=== PATIENT | female | born 1985 | race African-American/Black ===

== ENCOUNTER 2016-12-04 20:05 | Emergency (ER) | payer BC ==
[~2016-12-04] VITALS: Ht 165.1 cm; Wt 117.9 kg
[~2016-12-04 20:05] MED LIST: ALBUTEROL INHAL17 GM IH; AMOXICILLIN 50500 M1 PO; DEPO-PROVERA; FLAGYL500 MG PO; IRON; PRENATAL
[2016-12-04] MEDS ORDERED: MOBIC7.5 MG PO (20:37)
[2016-12-04] MEDS ORDERED: KEFLEX500 MG PO (20:37)
[2016-12-04 20:53] VITALS: BP 123/64
== END 2016-12-04 20:54 | disposition home or self-care (01) ==
LOC: ER 20:05
DX: S91.311A Laceration without foreign body, right foot, initial encounter (principal); E11.9 Type 2 diabetes mellitus without complications; X58.XXXA Exposure to other specified factors, initial encounter; Y93.89 Activity, other specified; Y92.89 Other specified places as the place of occurrence of the external cause; Y99.8 Other external cause status

== ENCOUNTER 2020-08-24 13:03 | Emergency (ER) | payer BC ==
[~2020-08-24] VITALS: Ht 165.1 cm; Wt 122.5 kg
[~2020-08-24 13:03] MED LIST changes: +KEFLEX500 MG PO; +MOBIC7.5 MG PO
[2020-08-24] MEDS ORDERED: METFORMIN HCL500 M3 PO (13:32)
[2020-08-24] MEDS ORDERED: LIPITOR 20 MG T20 M1 PO (13:33)
[2020-08-24 13:35] LABS: BASOPHILS 0.3 % (0.0-2.0); EOSINOPHILS 1.3 % (0.0-3.0); HEMOGLOBIN 13.8 gm/dL (12.0-15.0); LYMPHOCYTES 29.5 % (24.0-44.0); MCH 29.6 pg (26.0-34.0); MCHC 33.7 g/dL (28.0-37.0); MCV 87.8 fL (80.0-100.0); PLATELET COUNT 227 thou/uL (150-400); POLYS 60.9 % (36.0-66.0); RBC 4.67 mil/uL (4.20-5.00); RDW 13.3 % (10.5-14.5); WBC 6.5 thou/uL (4.0-11.0)
[2020-08-24 13:38] LABS: CALCIUM 8.2 mg/dL (8.5-10.1); CREATININE 0.9 mg/dL (0.6-1.0); POTASSIUM 3.9 mmol/L (3.5-5.1)
[2020-08-24 13:44] LABS: ALBUMIN 3.5 g/dL (3.4-5.0); TOTAL BILIRUBIN 0.5 mg/dL (0.2-1.0)
[2020-08-24] MEDS ORDERED: CYCLOBENZAPRINE5 MG PO (16:23)
[2020-08-24] MEDS ORDERED: NORCO5 PO (16:23)
[2020-08-24] MEDS ORDERED: MOBIC7.5 MG PO (16:23)
[2020-08-24 16:43] VITALS: BP 122/67
== END 2020-08-24 16:45 | disposition home or self-care (01) ==
LOC: ER 13:03
PROVIDERS: Physician Assistant
DX: S09.8XXA Other specified injuries of head, initial encounter (principal); M54.2 Cervicalgia; M54.5 Low back pain; R10.9 Unspecified abdominal pain; V49.49XA Driver injured in collision with other motor vehicles in traffic accident, initial encounter; Y93.89 Activity, other specified; Y92.89 Other specified places as the place of occurrence of the external cause; Y99.8 Other external cause status